=== PATIENT | female | born 1960 | race Caucasian/White ===

== ENCOUNTER → 2018-11-08 | Outpatient (CLI) | payer OTHER | END | disposition home or self-care (01) | LOC: HKI 09:17 | DX: M16.11 Unilateral primary osteoarthritis, right hip (principal); B19.20 Unspecified viral hepatitis C without hepatic coma; F32.9 Major depressive disorder, single episode, unspecified; F41.9 Anxiety disorder, unspecified; Z96.642 Presence of left artificial hip joint | CPT/HCPCS: 73523 ==

== ENCOUNTER → 2019-01-03 | Outpatient (CLI) | payer OTHER | END | disposition home or self-care (01) | LOC: HKI 08:57 | DX: Z01.818 Encounter for other preprocedural examination (principal); M16.0 Bilateral primary osteoarthritis of hip; B19.20 Unspecified viral hepatitis C without hepatic coma | CPT/HCPCS: Z7500 ==

== ENCOUNTER 2019-03-27 05:21 | Inpatient (IN) | payer OTHER ==
[2019-03-27] MEDS: DEXAMETHASONE 4 MG/ML 1 ML INJ IV (06:40)
[2019-03-27] MEDS: LACTATED RINGER'S 1,000 ML IV ×3 (06:40→20:08)
[2019-03-27] MEDS: LANSOPRAZOLE 30 MG CAP PO (06:40)
[2019-03-27] MEDS: ONDANSETRON 4 MG INJ IV ×2 (06:40→18:26)
[2019-03-27] MEDS: ACETAMINOPHEN 1000MG/100ML IV 100 ML IVPB (06:41)
[2019-03-27] MEDS: CELECOXIB 200 MG CAP PO (06:41)
[2019-03-27] MEDS: GABAPENTIN 300 MG CAP PO ×2 (06:41→20:09)
[2019-03-27] MEDS ORDERED: TRANEXAMIC ACID 1GM/100ML(PMX) 200 ML (06:59)
[2019-03-27] MEDS ORDERED: SEVOFLURANE 15 MIN (07:20)
[2019-03-27] MEDS ORDERED: LIDOCAINE 2% (SDV) 5 ML INJ (07:23)
[2019-03-27] MEDS ORDERED: ROCURONIUM 50 MG INJ ×2 (07:23→08:57)
[2019-03-27] MEDS ORDERED: NEOSTIGMINE 3 MG/3 ML SYRINGE (07:23)
[2019-03-27] MEDS ORDERED: SUCCINYLCHOLINE CHLORIDE 100 MG/5 ML SYG IV (07:23)
[2019-03-27] MEDS ORDERED: PROPOFOL 20 ML (07:23)
[2019-03-27] MEDS ORDERED: GLYCOPYRROLATE 0.4 MG INJ (07:23)
[2019-03-27] MEDS ORDERED: CEFAZOLIN 1 GM INJ (07:24)
[2019-03-27] MEDS ORDERED: MIDAZOLAM 1 MG/ML 2 ML INJ (07:24)
[2019-03-27] MEDS ORDERED: ROPIVACAINE 0.5 % 30 ML VIAL (10:43)
[2019-03-27] MEDS ORDERED: FENTAnyl 50 MCG/ML VIAL IV ×2 (11:00)
[2019-03-27] MEDS ORDERED: hydrALAzine 20 MG INJ IV (11:00)
[2019-03-27] MEDS ORDERED: LABETALOL HCL 20MG INJ IV (11:00)
[2019-03-27] MEDS ORDERED: MIDAZOLAM 1 MG/ML 2 ML INJ IV (11:00)
[2019-03-27] MEDS ORDERED: EPHEDrine 25 MG/5 ML SYG IV (11:00)
[2019-03-27] MEDS ORDERED: HYDROmorphONE 1 MG/5 ML IV SYRINGE IV ×3 (11:00)
[2019-03-27] MEDS ORDERED: ONDANSETRON 4 MG INJ IV (11:00)
[2019-03-27] MEDS ORDERED: DIPHENHYDRAMINE 50 MG INJ IV ×2 (11:00→11:30)
[2019-03-27] MEDS ORDERED: METOCLOPRAMIDE 10 MG INJ IV (11:00)
[2019-03-27] MEDS ORDERED: MAGNESIUM HYDROXIDE 30ML CUP PO (11:30)
[2019-03-27] MEDS ORDERED: oxyCODONE 5 MG TAB PO (11:30)
[2019-03-27] MEDS ORDERED: BISACODYL 10 MG SUPP PR (11:30)
[2019-03-27] MEDS ORDERED: NACL 0.9% 3 ML SYG IV (11:30)
[2019-03-27] MEDS ORDERED: NALOXONE (0.4 MG/ML) INJ IV (11:30)
[2019-03-27] MEDS ORDERED: BETHANECHOL 25 MG TAB PO (11:30)
[2019-03-27] MEDS ORDERED: NA PHOSPHATE/BIPHOS 133 ML ENEMA PR (11:30)
[2019-03-27] MEDS: MEPERIDINE 25 MG INJ IV (11:50)
[2019-03-27] MEDS: FENTAnyl 50 MCG/ML VIAL IV (11:57)
[2019-03-27] MEDS ORDERED: LORAZEPAM 0.5 MG TAB PO (12:00)
[2019-03-27] MEDS: DOCUSATE SODIUM 100 MG CAP PO (12:21)
[2019-03-27] MEDS: CEFAZOLIN 2 GM/50 ML (PMX) 50 ML IVPB ×2 (12:28→20:08)
[2019-03-27] MEDS: ACETAMINOPHEN 500 MG TAB PO ×2 (14:43→21:38)
[2019-03-27] MEDS: oxyCODONE 5 MG TAB PO (14:55)
[2019-03-27] MEDS: HYDROmorphONE 1 MG/ML SYG IV (16:10)
[2019-03-27] MEDS: SENNA/DOCUSATE NA (8.6MG/50MG) TAB PO (20:08)
[2019-03-27] MEDS: BUSPIRONE 10 MG TAB PO (20:09)
[2019-03-28] MEDS: CEFAZOLIN 2 GM/50 ML (PMX) 50 ML IVPB (04:19)
[2019-03-28 04:54] LABS: ADD MAN DIFF? NO
[2019-03-28 04:59] LABS: BASOPHILS % 0.2 % (0.0-2.0); HEMATOCRIT 24.2 % (37.0-47.0); HEMOGLOBIN 7.8 g/dl (12.0-16.0); LYMPHOCYTES # 1.6 10^3/ul (0.8-2.9); LYMPHOCYTES % 14.3 % (15.0-51.0); MEAN CORPUSCULAR HEMOGLOBIN 31.2 pg (29.0-33.0); MEAN CORPUSCULAR HGB CONC 32.2 g/dl (32.0-37.0); MEAN CORPUSCULAR VOLUME 96.8 fl (82.0-101.0); MEAN PLATELET VOLUME 10.6 fl (7.4-10.4); MONOCYTE # 0.9 10^3/ul (0.3-0.9); NEUTROPHIL # 8.4 10^3/ul (1.6-7.5); NEUTROPHILS % 77.1 % (39.0-77.0); PLATELET COUNT 168 10^3/UL (140-415); RED CELL DISTRIBUTION WIDTH 13.2 % (11.5-14.5)
[2019-03-28 04:59] LABS: WHITE BLOOD COUNT 10.8 10^3/ul (4.8-10.8)
[2019-03-28 05:17] LABS: INR 1.18; PROTIME 15.1 Sec (11.9-14.9); PT RATIO 1.2
[2019-03-28 05:24] LABS: ANION GAP 4 (5-13); BLOOD UREA NITROGEN 16 mg/dl (7-20); CALCIUM 8.8 mg/dl (8.4-10.2); CARBON DIOXIDE 30 mmol/L (21-31); CHLORIDE 107 mmol/L (97-110); CREATININE 0.89 mg/dl (0.44-1.00); Estimated GFR > 60 mL/min (>60); GLUCOSE 98 mg/dl (70-220); POTASSIUM 4.5 mmol/L (3.5-5.1); SODIUM 141 mmol/L (135-144)
[2019-03-28] MEDS: PANTOPRAZOLE (EC) 40 MG TAB PO (05:56)
[2019-03-28] MEDS: KETOROLAC 15 MG INJ IV ×2 (05:58→14:15)
[2019-03-28] MEDS: ACETAMINOPHEN 500 MG TAB PO ×2 (05:59→14:16)
[2019-03-28] MEDS: LACTATED RINGER'S 1,000 ML IV ×2 (06:30→11:36)
[2019-03-28] MEDS: DEXAMETHASONE 10 MG/ML 1 ML INJ IV (07:32)
[2019-03-28] MEDS: DOCUSATE SODIUM 100 MG CAP PO (09:10)
[2019-03-28] MEDS: BUPROPION (XL) 150 MG TAB PO (09:10)
[2019-03-28] MEDS: ASPIRIN (EC) 81 MG TAB PO (09:10)
[2019-03-28] MEDS: BUSPIRONE 10 MG TAB PO (09:10)
[2019-03-28] MEDS: oxyCODONE 5 MG TAB PO ×2 (10:29→17:28)
[2019-03-28] MEDS ORDERED: ONDANSETRON 4 MG INJ IV (11:30)
== END 2019-03-28 18:26 | disposition home health service (06) | DRG 470 ==
LOC: REC 05:21 → MS1 13:04
PROC: 0SRB04Z Replacement of Left Hip Joint with Ceramic on Polyethylene Synthetic Substitute, Open Approach (ICD-10-PCS; principal; 2019-03-27 07:30)
DX: M16.12 Unilateral primary osteoarthritis, left hip (principal); F32.9 Major depressive disorder, single episode, unspecified; F41.9 Anxiety disorder, unspecified; D64.9 Anemia, unspecified; R03.1 Nonspecific low blood-pressure reading
CPT/HCPCS: 72170; 73500; 73530; 80048; 85025; 85610; 86850; 86900; 86901; 87081; 87086; 88304; 88311; 97116; 97162; 97167; 97530